=== PATIENT | male | born 1995 | race Two or more races ===

== ENCOUNTER 2019-01-28 03:13 | Emergency (ER) | payer MEDICAID ==
[~2019-01-28] VITALS: Ht 162.6 cm; Wt 71.7 kg
[2019-01-28] MEDS ORDERED: HYDROcodone-ACET 5/325MG TAB PO ONE (07:00)
[2019-01-28 07:25] VITALS: BP 120/70
== END 2019-01-28 07:47 | disposition home or self-care (01) ==
LOC: ER 03:13
DX: S62.316A Displaced fracture of base of fifth metacarpal bone, right hand, initial encounter for closed fracture (principal); W22.8XXA Striking against or struck by other objects, initial encounter; Y93.89 Activity, other specified; Y99.8 Other external cause status; Y92.89 Other specified places as the place of occurrence of the external cause
CPT/HCPCS: 29125; 73130